=== PATIENT | female | born 1970 | race Caucasian/White ===

== ENCOUNTER 2016-09-20 00:12 | Emergency (ER) | payer OTHER ==
[~2016-09-20] VITALS: Ht 172.7 cm; Wt 72.6 kg
[~2016-09-20 00:12] MED LIST: APAP650 PO; AZITHROMYCIN 2250 MG PO; BACTRIM DS TAB1 EACH PO; CLARITIN10 MG PO; FLEXERIL PO; IBUPROFEN 400400 M2 PO; KEFLEX500 MG PO; MUCINEX TA600 MG/TA2 PO; NORCO 5-325 TA1 EACH PO; NORFLEX100 MG PO; PYRIDIUM200 M2 PO; SUDAFED 12 HR120 MG PO; ULTRAM 50MG TAB50 MG PO; VENTOLIN HFA 1818 GM INH
[2016-09-20 00:31] LABS: URINE BILIRUBIN NEGATIVE (Negative); URINE BLOOD 3+ (Negative); URINE COLOR YELLOW; URINE GLUCOSE-RANDOM* NEGATIVE (Negative); URINE KETONES NEGATIVE (Negative); URINE LEUKOCYTES-REFLEX 2+ (Negative); URINE PROTEIN (DIPSTICK) 1+ (Negative); URINE SPECIFIC GRAVITY <= 1.005 (1.003-1.035); URINE UROBILINOGEN 0.2 E.U./dl (0.2-1.0)
[2016-09-20] MEDS ORDERED: BACTRIM DS TAB1 EACH PO (00:44)
[2016-09-20] MEDS ORDERED: PYRIDIUM200 MG PO (00:44)
[2016-09-20 00:45] LABS: CASTS None Seen /LPF (None Seen); CRYSTALS None Seen /LPF (None Seen); SQUAMOUS 4-10 Moderate /LPF (0-3); URINE RBC 3-10 Few /HPF (0-2)
[2016-09-20 00:46] LABS: TRANSITIONAL EPITHEL CELL 0-3 Few /LPF (None Seen)
[2016-09-20 00:58] VITALS: BP 130/68
== END 2016-09-20 01:00 | disposition home or self-care (01) ==
LOC: ER 00:12
PROVIDERS: Emergency Medicine
DX: N39.0 Urinary tract infection, site not specified (principal); M19.90 Unspecified osteoarthritis, unspecified site; F17.210 Nicotine dependence, cigarettes, uncomplicated; F10.99 Alcohol use, unspecified with unspecified alcohol-induced disorder; Z88.1 Allergy status to other antibiotic agents; Z88.0 Allergy status to penicillin; Z88.8 Allergy status to other drugs, medicaments and biological substances; Z90.49 Acquired absence of other specified parts of digestive tract; Z98.890 Other specified postprocedural states

== ENCOUNTER 2017-05-30 11:26 | Emergency (ER) | payer BC, OTHER ==
[~2017-05-30] VITALS: Ht 175.3 cm; Wt 68.0 kg
[~2017-05-30 11:26] MED LIST changes: +ACYCLOVIR 200200 MG PO; +PYRIDIUM200 MG PO; +VENTOLIN HFA INH8 GM INH; +ZPAK PO
[2017-05-30] MEDS ORDERED: NORCO 5-325 TA1 EACH PO (12:39)
[2017-05-30 13:29] VITALS: BP 119/76
== END 2017-05-30 13:29 | disposition home or self-care (01) ==
LOC: ER 11:26
DX: S60.221A Contusion of right hand, initial encounter (principal); M54.9 Dorsalgia, unspecified; S09.90XA Unspecified injury of head, initial encounter; Z88.0 Allergy status to penicillin; Z88.1 Allergy status to other antibiotic agents; W01.0XXA Fall on same level from slipping, tripping and stumbling without subsequent striking against object, initial encounter; Y93.89 Activity, other specified; Y92.89 Other specified places as the place of occurrence of the external cause; Y99.8 Other external cause status